=== PATIENT | female | born 1945 | race Caucasian/White ===

== ENCOUNTER → 2017-12-16 | Day surgery (SDC) | payer MEDICARE, OTHER ==
[2017-12-13 12:13] LABS: BASOPHILS # (AUTO) 0.1 (0.0-0.1); BASOPHILS % 0.7 % (0.0-1.0); EOSINOPHILS # (AUTO) 0.2 (0.0-0.4); EOSINOPHILS % 3.3 % (0.0-6.0); HEMATOCRIT 46.2 % (34.2-44.1); HEMOGLOBIN 15.2 g/dL (12.0-16.0); LYMPHOCYTES # (AUTO) 2.2 (1.0-3.2); LYMPHOCYTES % 29.3 % (18.0-39.1); MEAN CORPUSCULAR HEMOGLOBIN 30.6 pg (28-32); MEAN CORPUSCULAR HGB CONC 32.9 g/dL (31-35); MEAN CORPUSCULAR VOLUME 93.1 fL (81-99); MONOCYTES # (AUTO) 0.7 (0.2-0.8); MONOCYTES % 9.6 % (4.4-11.3); NEUTROPHILS # (AUTO) 4.2 (2.1-6.9); NEUTROPHILS % 56.8 % (38.7-80.0); PLATELET COUNT 249 x10e3/uL (140-360); RED BLOOD COUNT 4.96 x10e6/uL (3.6-5.1); RED CELL DISTRIBUTION WIDTH 13.5 % (11.7-14.4)
[~2017-12-16] MED LIST: AMLODIPINE BESYL5 MG PO; ASPIR 8181 MG PO; AUGMENTIN 875-1 EACH PO; AZO CRANBERRY1 EAC1 PO; CLARITIN10 M1 PO; CRESTOR10 MG PO; FENTANYL CITRATE/PF 100MCG/2 ML INJ ONE; FISH OIL 1,0001 EAC2 PO; FLONASE16 GM; GABAPENTIN300 MG PO; GLIPIZIDE5 MG PO; HYOSCYAMINE SULFATE 0.5 MG/ML AMP ONE; INVOKANA PO; LIDOCAINE HCL 2% LOCAL INJ 5 ML SDV VIAL INJ ONE; LISINOPRIL-HCT1 EAC1 PO; METFORMIN HCL1000 M1 PO; METOPROLOL TART50 MG PO; MULTI-VITAMIN1 EACH PO; POTASSIUM CHLOR8 ME1 PO; PROPOFOL IV EMULSION 10 MG/ML 50 ML VIAL ONE; REQUIP1 MG PO; SIMVASTATIN10 MG PO; VITAMIN B COMP1 EAC4 PO
--- NOTE | 2017-12-16 14:06 | Operative Report ---
DATE OF PROCEDURE: December 16, 2017 REFERRING PHYSICIAN: Dr. Sally Lemus PROCEDURES PERFORMED 1. Esophagogastroduodenoscopy with biopsies. 2. Colonoscopy with polypectomy. INDICATIONS FOR EGD: Heartburn and indigestion. INDICATIONS FOR COLONOSCOPY: Colorectal cancer screening and personal history of colon polyps. MEDICATION: Patient was done under MAC. Please see anesthesiologist's note. PROCEDURE: With the patient in the left lateral decubitus position, the flexible fiberoptic Olympus gastroscope was introduced into the esophagus under direct visualization without any difficulty. There was some patchy erythema noted in the distal esophagus. The scope was then advanced with ease into the stomach. Mucosa overlying the antrum and the body revealed some patchy erythema and moderate edema, and biopsies were obtained and sent to stain for H. pylori. There was also some minute ulcers in the antrum and biopsies were obtained. The pylorus was of normal contour and shape. It was intubated with ease. The scope was advanced all the way to the 2nd portion of the duodenum. The scope was then withdrawn slowly. Mucosa overlying the proximal 2nd portion and the duodenal bulb appeared to be within normal limits. The scope was then withdrawn back into the stomach and retroflexed. The mucosa overlying the fundus and the cardia appeared to be within normal limits. The scope was then straightened out. The stomach was decompressed. The scope was subsequently withdrawn. Patient tolerated the procedure well. IMPRESSION 1. Distal esophagitis. 2. Gastritis. 3. Gastric ulcers, minute, antrum. Biopsies obtained and sent to stain for Helicobacter pylori. PLAN: Follow up histology. Initiate Protonix 40 mg 1 p.o. q.a.m. and a.c. Patient was then turned around. After adequate lubrication of the anal canal, a flexible fiberoptic Olympus colonoscope was inserted into the rectum with ease and advanced all the way to the cecum. Prep overall was suboptimal. The scope was then withdrawn slowly. Whatever was visualized, the mucosa overlying the cecum, ascending colon, transverse colon, and descending colon grossly appeared to be within normal limits. One polyp was snared from the sigmoid colon. Diverticular disease was noted in the sigmoid colon. The rectum grossly appeared to be within normal limits. The scope was then retroflexed into the distal rectum and small internal hemorrhoids were noted, none of which was actively bleeding. The scope was then straightened out. The rectosigmoid area, as well as the distal rectal area were decompressed. The scope was subsequently withdrawn. Patient tolerated the procedure well. IMPRESSION 1. Suboptimal prep. 2. Sigmoid colon polyp, snared. 3. Diverticulosis. 4. Internal hemorrhoids, none actively bleeding. PLAN: Follow up histology. Initiate high-fiber and low-fat diet. Initiate high-fiber supplement. Patient will need a followup colonoscopy in 3 years. Job#: [id number] RI cc:SALLY LEMUS MD
== END | disposition home or self-care (01) ==
LOC: OR 10:10
PROVIDERS: ATTEND Internal Medicine Gastroenterology
DX: Z12.11 Encounter for screening for malignant neoplasm of colon (principal); D12.5 Benign neoplasm of sigmoid colon; K29.70 Gastritis, unspecified, without bleeding; K25.9 Gastric ulcer, unspecified as acute or chronic, without hemorrhage or perforation; K20.9 Esophagitis, unspecified; K57.30 Diverticulosis of large intestine without perforation or abscess without bleeding; K64.8 Other hemorrhoids; I10 Essential (primary) hypertension; E11.9 Type 2 diabetes mellitus without complications; R00.1 Bradycardia, unspecified; Z88.0 Allergy status to penicillin; Z88.1 Allergy status to other antibiotic agents; Z01.810 Encounter for preprocedural cardiovascular examination; Z01.812 Encounter for preprocedural laboratory examination; Z79.82 Long term (current) use of aspirin; Z68.29 Body mass index [BMI] 29.0-29.9, adult
CPT/HCPCS: 36415 ×2; 43239; 45385; 82948; 85025; 88305; 88312; 93005; J1980; J2001

== ENCOUNTER → 2018-04-24 | Outpatient (CLI) | payer MEDICARE, OTHER ==
[~2018-04-24] MED LIST changes: -FENTANYL CITRATE/PF 100MCG/2 ML INJ ONE; -HYOSCYAMINE SULFATE 0.5 MG/ML AMP ONE; -LIDOCAINE HCL 2% LOCAL INJ 5 ML SDV VIAL INJ ONE; -PROPOFOL IV EMULSION 10 MG/ML 50 ML VIAL ONE
--- NOTE | 2018-04-24 10:13 | Diagnostic Imaging Report ---
PROCEDURE: X-RAY CHEST, TWO VIEWS COMPARISON: None. INDICATIONS: PREOPERATIVE CHEST XRAY FOR KNEE SURGERY FINDINGS: LUNGS: No consolidations or edema. PLEURA: No effusions or pneumothorax. HEART \T\ MEDIASTINUM: The heart is within normal size-limits. Tortuosity and calcification within the aorta. BONES \T\ SOFT TISSUES: No acute findings. Degenerative changes of the spine. CONCLUSION: No acute thoracic abnormality. Osmany Ren D.O. Dictated by: Osmany Ren D.O. on 04/24/2018 at 10:20 Electronically approved by: Osmany Ren D.O. on 04/24/2018 at 10:20
== END ==
LOC: RAD 09:24
DX: Z01.818 Encounter for other preprocedural examination (principal)
CPT/HCPCS: 71046

== ENCOUNTER → 2020-02-29 | Day surgery (SDC) | payer MEDICARE, OTHER ==
[2020-02-25 14:48] LABS: BASOPHILS # (AUTO) 0.1 (0.0-0.1); BASOPHILS % 0.9 % (0.0-1.0); EOSINOPHILS # (AUTO) 0.3 (0.0-0.4); EOSINOPHILS % 2.4 % (0.0-6.0); HEMATOCRIT 51.8 % (34.2-44.1); HEMOGLOBIN 16.4 g/dL (12.0-16.0); LYMPHOCYTES # (AUTO) 2.9 (1.0-3.2); MEAN CORPUSCULAR HEMOGLOBIN 28.1 pg (28-32); MEAN CORPUSCULAR HGB CONC 31.7 g/dL (31-35); MEAN CORPUSCULAR VOLUME 88.9 fL (81-99); MONOCYTES # (AUTO) 1.2 (0.2-0.8); MONOCYTES % 11.1 % (4.4-11.3); NEUTROPHILS # (AUTO) 6.3 (2.1-6.9); NEUTROPHILS % 58.2 % (38.7-80.0); PLATELET COUNT 324 x10e3/uL (140-360); RED BLOOD COUNT 5.83 x10e6/uL (3.6-5.1); RED CELL DISTRIBUTION WIDTH 14.3 % (11.7-14.4)
[~2020-02-29] MED LIST changes: +FENTANYL CITRATE/PF 100MCG/2 ML INJ ONE; +LIDOCAINE HCL 2% LOCAL INJ 5 ML SDV VIAL INJ ONE; +MIDAZOLAM HCL 2 MG/2 ML VIAL ONE; +PROPOFOL IV EMULSION 10 MG/ML 20 ML VIAL ONE; +VITAMIN C500 M6 PO; +VITAMIN D3125 MCG PO
[2020-02-29 08:30] VITALS: BP 117/75
--- NOTE | 2020-02-29 08:41 | Operative Report ---
DATE OF PROCEDURE: 02/29/2020 SURGEON: Ted Nolan MD PROCEDURE: EGD with biopsies. INDICATIONS FOR EGD: Upper abdominal pain, history of GIST tumor. MEDICATIONS: The patient was done under MAC, please see anesthesiologist's note. PROCEDURE IN DETAIL: With the patient in the left lateral decubitus position, a flexible fiberoptic Olympus gastroscope was introduced into the esophagus under direct visualization without any difficulty. There was some patchy erythema noted in distal esophagus. The scope was then advanced with ease into the stomach. Mucosa overlying the antrum and the body revealed some diffuse erythema and low-grade to moderate edema, and biopsies were obtained and sent to stain for H. pylori. An approximately 1 cm prepyloric lesion was noted and that was biopsied. The scope was then advanced with ease all the way into the second portion of the duodenum and the duodenal anastomosis appeared intact without evidence of recurrence. The scope was then withdrawn back into the duodenal bulb. An approximately 1.2 cm submucosal lesion was noted in the distal bulb and biopsies were obtained. The scope was then withdrawn back into the stomach and retroflexed, and mucosa overlying the fundus and the cardia appeared to be within normal limits. The scope was then straightened out, it was subsequently withdrawn, and the patient tolerated the procedure well. IMPRESSION: 1. Distal esophagitis, mild. 2. Gastritis, biopsied, biopsies sent to stain for Helicobacter pylori. 3. Approximately 1 cm prepyloric lesion, biopsied. 4. Approximately 1.2 cm submucosal lesion bulb, biopsied. 5. Duodenal anastomosis intact. No evidence of recurrence. PLAN: Follow up histology. Initiate Protonix 40 mg one p.o. q.a.m. before meals. The patient will need an EGD in 2 to 3 months to re-evaluate for evaluation if biopsies were negative. Ted Nolan MD [facility] /[id number] cc: Austin Nolan MD
== END | disposition home or self-care (01) ==
LOC: OR 05:51
PROVIDERS: ATTEND Internal Medicine Gastroenterology
DX: K29.50 Unspecified chronic gastritis without bleeding (principal); Z86.010 Personal history of colon polyps; K31.7 Polyp of stomach and duodenum; K29.80 Duodenitis without bleeding; K20.9 Esophagitis, unspecified; Z98.0 Intestinal bypass and anastomosis status; K31.89 Other diseases of stomach and duodenum; E11.9 Type 2 diabetes mellitus without complications; I10 Essential (primary) hypertension; E78.00 Pure hypercholesterolemia, unspecified; D21.4 Benign neoplasm of connective and other soft tissue of abdomen; M19.90 Unspecified osteoarthritis, unspecified site; F17.210 Nicotine dependence, cigarettes, uncomplicated; Z88.1 Allergy status to other antibiotic agents; Z88.0 Allergy status to penicillin; Z01.810 Encounter for preprocedural cardiovascular examination; Z01.812 Encounter for preprocedural laboratory examination; Z11.59 Encounter for screening for other viral diseases; Z79.82 Long term (current) use of aspirin; Z79.84 Long term (current) use of oral hypoglycemic drugs; Z79.4 Long term (current) use of insulin; Z68.26 Body mass index [BMI] 26.0-26.9, adult; Z86.018 Personal history of other benign neoplasm
CPT/HCPCS: 36415 ×2; 43239; 82948; 85025; 87635; 88305; 88312; 93005; J2001; J2250; J2704; J3010

== ENCOUNTER → 2020-03-02 | Outpatient (CLI) | payer MEDICARE, OTHER ==
[~2020-03-02] MED LIST changes: -FENTANYL CITRATE/PF 100MCG/2 ML INJ ONE; +IOPAMIDOL 370 MG/ML 200 ML INFUS..BTL INJ ONE; -LIDOCAINE HCL 2% LOCAL INJ 5 ML SDV VIAL INJ ONE; -MIDAZOLAM HCL 2 MG/2 ML VIAL ONE; -PROPOFOL IV EMULSION 10 MG/ML 20 ML VIAL ONE; +SODIUM CHLORIDE 0.9% 50ML 50 ML ONE
[2020-03-02 15:44] LABS: BLOOD UREA NITROGEN 16 mg/dL (7-26); BUN/CREATININE RATIO 22 (6-25); CREATININE, SERUM 0.74 mg/dL (0.57-1.11); EST GLOMERULAR FILTRATION RATE > 60 ML/MIN (60-)
--- NOTE | 2020-03-02 16:53 | Diagnostic Imaging Report ---
EXAM: CT Abdomen and Pelvis WITH intravenous contrast INDICATION: Upper abdominal pain COMPARISON: None. TECHNIQUE: Abdomen and pelvis were scanned utilizing a multidetector helical scanner from the lung base to the pubic symphysis after administration of IV contrast. Coronal and sagittal reformations were obtained. Routine protocol was performed. Scan was performed during portal venous phase. IV CONTRAST: 100mL of Isovue 370 ORAL CONTRAST: Water RADIATION DOSE: Total DLP: 753 mGy*cm Dose modulation, iterative reconstruction, and/or weight based adjustment of the mA/kV was utilized to reduce the radiation dose to as low as reasonably achievable. FINDINGS: LOWER THORAX: Normal. HEPATOBILIARY: No focal liver lesion. Focal fat adjacent to the falciform ligament. SPLEEN: No splenomegaly. PANCREAS: No focal masses or ductal dilatation. ADRENALS: No adrenal nodules. KIDNEYS/URETERS: No hydronephrosis, stones, or solid mass lesions. 2 cm right upper pole renal cyst. PELVIC ORGANS/BLADDER: Calcified uterine fibroids. PERITONEUM / RETROPERITONEUM: No free air or fluid. LYMPH NODES: No lymphadenopathy. VESSELS: Moderate atherosclerotic calcifications of the nonaneurysmal abdominal aorta and major branches. GI TRACT: Prominent diverticulosis. No CT evidence of diverticulitis. No abnormal bowel thickening. No bowel obstruction. Duodenal diverticulum. BONES AND SOFT TISSUES: No acute fracture or dislocation. IMPRESSION: No acute findings in the abdomen to explain patient's upper abdominal pain. Signed by: Tee Gilbert MD on 03/02/2020 4:50 PM
== END ==
LOC: CT 14:45
PROVIDERS: ATTEND Internal Medicine Gastroenterology
DX: R10.10 Upper abdominal pain, unspecified (principal)
CPT/HCPCS: 36415; 74177; 82565; 84520; Q9967

== ENCOUNTER → 2022-06-22 | Outpatient (CLI) | payer MEDICARE, OTHER ==
[~2022-06-22] MED LIST changes: +IOPAMIDOL 370 MG/ML 100 ML INFUS..BTL INJ ONE; -IOPAMIDOL 370 MG/ML 200 ML INFUS..BTL INJ ONE; -SODIUM CHLORIDE 0.9% 50ML 50 ML ONE
== END ==
LOC: CT 07:39
DX: R10.9 Unspecified abdominal pain (principal); Z98.890 Other specified postprocedural states
CPT/HCPCS: 74177; Q9967

== ENCOUNTER 2022-11-10 06:23 | Inpatient (IN) | payer MEDICARE, OTHER ==
[~2022-11-10] VITALS: Ht 175.3 cm; Wt 103.4 kg
[~2022-11-10 06:23] MED LIST changes: -IOPAMIDOL 370 MG/ML 100 ML INFUS..BTL INJ ONE
[2022-11-10 06:57] LABS: BASOPHILS # (AUTO) 0.1 (0.0-0.1); BASOPHILS % 0.6 % (0.0-1.0); EOSINOPHILS # (AUTO) 0.2 (0.0-0.4); EOSINOPHILS % 1.3 % (0.0-6.0); HEMATOCRIT 52.9 % (34.2-44.1); HEMOGLOBIN 17.1 g/dL (12.0-16.0); LYMPHOCYTES % 16.1 % (18.0-39.1); MEAN CORPUSCULAR HEMOGLOBIN 29.3 pg (28-32); MEAN CORPUSCULAR HGB CONC 32.3 g/dL (31-35); MEAN CORPUSCULAR VOLUME 90.6 fL (81-99); MONOCYTES # (AUTO) 1.2 (0.2-0.8); MONOCYTES % 9.9 % (4.4-11.3); NEUTROPHILS % 71.8 % (38.7-80.0); PLATELET COUNT 296 x10e3/uL (140-360); RED BLOOD COUNT 5.84 x10e6/uL (3.6-5.1); RED CELL DISTRIBUTION WIDTH 16.4 % (11.7-14.4)
[2022-11-10 07:02] LABS: INR 0.91; PROTHROMBIN TIME 12.8 seconds (11.9-14.5)
[2022-11-10 07:11] LABS: ALBUMIN 3.8 g/dL (3.5-5.0); ANION GAP 14.1 mmol/L (8-16); CALCIUM 9.7 mg/dL (8.4-10.2); CREATININE, SERUM 0.92 mg/dL (0.57-1.11); POTASSIUM 4.1 mmol/L (3.5-5.1)
[2022-11-10] MEDS ORDERED: DICYCLOMINE HCL 20 MG/2 ML VIAL IM ONE (07:30)
[2022-11-10] MEDS ORDERED: FENTANYL CITRATE/PF 100MCG/2 ML INJ IV PRN (07:30)
[2022-11-10] MEDS ORDERED: IOPAMIDOL 370 MG/ML 100 ML INFUS..BTL INJ ONE (07:33)
[2022-11-10] MEDS ORDERED: SODIUM CHLORIDE 0.9% 100 ML ONE (07:33)
[2022-11-10] MEDS ORDERED: LACTATED RINGER'S 1,000 ML INJ ONE (09:30)
[2022-11-10] MEDS ORDERED: ONDANSETRON HCL INJ 2MG/ML 2ML 2 MG/ML VIAL IV PRN (09:45)
[2022-11-10] MEDS: SODIUM CHLORIDE 0.9% 1000ML 1,000 ML IV SCH ×2 (10:02→12:03)
[2022-11-10] MEDS: Morphine 4mg INJECTION 4 MG/ML INJ IV PRN ×3 (10:47→20:58)
[2022-11-10] MEDS ORDERED: BUPROPION HCL100 MG PO (10:56)
[2022-11-10] MEDS ORDERED: POTASSIUM CHLO10 ME1 PO (10:56)
[2022-11-10] MEDS ORDERED: VESICARE5 MG PO (10:56)
[2022-11-10] MEDS ORDERED: PRAVASTATIN SOD10 MG PO (10:56)
[2022-11-10] MEDS ORDERED: ZINC PO (10:59)
[2022-11-10] MEDS ORDERED: ZYRTEC10 MG PO (11:00)
[2022-11-10] MEDS ORDERED: METRONIDAZOLE 750MG/NS 150ML 150 ML IV SCH (11:00)
[2022-11-10] MEDS ORDERED: VITAMIN D330 ML PO (11:01)
[2022-11-10] MEDS ORDERED: B COMPLEX1 EACH PO (11:03)
[2022-11-10 11:30] VITALS: BP 117/62
[2022-11-10 11:53] VITALS: BP 117/62
[2022-11-10] MEDS ORDERED: FENTANYL CITRATE/PF 100MCG/2 ML INJ ONE (12:53)
[2022-11-10] MEDS: METRONIDAZOLE 750MG/NS 150ML 150 ML IV SCH ×2 (12:55→18:04)
[2022-11-10] MEDS ORDERED: PROPOFOL IV EMULSION 10 MG/ML 20 ML VIAL ONE (13:58)
[2022-11-10 16:16] VITALS: BP 107/59
[2022-11-10] MEDS: GABAPENTIN 300 MG CAP PO SCH (16:58)
[2022-11-10] MEDS ORDERED: METOPROLOL TARTRATE 50 MG TAB PO SCH (17:00)
[2022-11-10] MEDS ORDERED: CIPROFLOXACIN 400 MG/D5W 200ML 200 ML IV SCH (17:00)
[2022-11-10] MEDS: CIPROFLOXACIN 400 MG/D5W 200ML 200 ML IV SCH (21:04)
[2022-11-10 22:36] VITALS: BP 94/49
[2022-11-10 22:38] VITALS: BP 94/49
[2022-11-11] VITALS (7 sets, daily range): BP systolic 90–124; BP diastolic 47–81
[2022-11-11] MEDS: SODIUM CHLORIDE 0.9% 1000ML 1,000 ML IV SCH ×3 (00:21→16:11)
[2022-11-11] MEDS: METRONIDAZOLE 750MG/NS 150ML 150 ML IV SCH ×3 (04:32→18:02)
[2022-11-11] MEDS: Morphine 4mg INJECTION 4 MG/ML INJ IV PRN ×3 (05:03→17:40)
[2022-11-11 05:37] LABS: BASOPHILS # (AUTO) 0.1 (0.0-0.1); BASOPHILS % 0.5 % (0.0-1.0); EOSINOPHILS # (AUTO) 0.2 (0.0-0.4); EOSINOPHILS % 1.9 % (0.0-6.0); HEMATOCRIT 46.4 % (34.2-44.1); HEMOGLOBIN 14.6 g/dL (12.0-16.0); LYMPHOCYTES # (AUTO) 1.7 (1.0-3.2); LYMPHOCYTES % 15.9 % (18.0-39.1); MEAN CORPUSCULAR HGB CONC 31.5 g/dL (31-35); MEAN CORPUSCULAR VOLUME 92.2 fL (81-99); MONOCYTES # (AUTO) 1.1 (0.2-0.8); MONOCYTES % 10.2 % (4.4-11.3); NEUTROPHILS # (AUTO) 7.8 (2.1-6.9); NEUTROPHILS % 71.3 % (38.7-80.0); PLATELET COUNT 229 x10e3/uL (140-360); RED BLOOD COUNT 5.03 x10e6/uL (3.6-5.1); RED CELL DISTRIBUTION WIDTH 15.8 % (11.7-14.4)
[2022-11-11 06:02] LABS: ALBUMIN 2.9 g/dL (3.5-5.0); ANION GAP 12.7 mmol/L (8-16); CALCIUM 8.8 mg/dL (8.4-10.2); CREATININE, SERUM 0.74 mg/dL (0.57-1.11); POTASSIUM 3.7 mmol/L (3.5-5.1)
[2022-11-11] MEDS ORDERED: HYDROCHLOROTHIAZIDE 25 MG TAB PO SCH (09:00)
[2022-11-11] MEDS ORDERED: LISINOPRIL 20 MG TAB PO SCH (09:00)
[2022-11-11] MEDS: SOLIFENACIN SUCCINATE 5 MG TAB PO SCH (09:50)
[2022-11-11] MEDS: MULTIVITAMINS/MINERALS TAB PO SCH (09:50)
[2022-11-11] MEDS: BUPROPION HCL 100 MG TAB PO SCH (09:50)
[2022-11-11] MEDS: GABAPENTIN 300 MG CAP PO SCH ×2 (09:50→16:11)
[2022-11-11] MEDS: CIPROFLOXACIN 400 MG/D5W 200ML 200 ML IV SCH ×2 (09:53→20:23)
[2022-11-11] MEDS ORDERED: IOPAMIDOL 370 MG/ML 100 ML INFUS..BTL INJ ONE (11:15)
[2022-11-12] VITALS (8 sets, daily range): BP systolic 143–157; BP diastolic 66–85
[2022-11-12] MEDS: SODIUM CHLORIDE 0.9% 1000ML 1,000 ML IV SCH ×3 (00:09→17:26)
[2022-11-12] MEDS: Morphine 4mg INJECTION 4 MG/ML INJ IV PRN ×4 (00:09→09:24)
[2022-11-12] MEDS: METRONIDAZOLE 750MG/NS 150ML 150 ML IV SCH ×3 (03:40→17:26)
[2022-11-12 04:54] LABS: BASOPHILS # (AUTO) 0.1 (0.0-0.1); BASOPHILS % 0.6 % (0.0-1.0); EOSINOPHILS # (AUTO) 0.3 (0.0-0.4); EOSINOPHILS % 2.9 % (0.0-6.0); HEMATOCRIT 46.3 % (34.2-44.1); HEMOGLOBIN 14.5 g/dL (12.0-16.0); LYMPHOCYTES # (AUTO) 1.5 (1.0-3.2); LYMPHOCYTES % 16.9 % (18.0-39.1); MEAN CORPUSCULAR HEMOGLOBIN 28.8 pg (28-32); MEAN CORPUSCULAR HGB CONC 31.3 g/dL (31-35); MONOCYTES # (AUTO) 0.9 (0.2-0.8); MONOCYTES % 10.6 % (4.4-11.3); NEUTROPHILS % 68.8 % (38.7-80.0); PLATELET COUNT 214 x10e3/uL (140-360); RED BLOOD COUNT 5.03 x10e6/uL (3.6-5.1); RED CELL DISTRIBUTION WIDTH 15.3 % (11.7-14.4)
[2022-11-12 05:16] LABS: ANION GAP 14.6 mmol/L (8-16); CALCIUM 8.3 mg/dL (8.4-10.2); CREATININE, SERUM 0.71 mg/dL (0.57-1.11); POTASSIUM 3.6 mmol/L (3.5-5.1)
[2022-11-12] MEDS: MULTIVITAMINS/MINERALS TAB PO SCH (09:26)
[2022-11-12] MEDS: BUPROPION HCL 100 MG TAB PO SCH (09:26)
[2022-11-12] MEDS: GABAPENTIN 300 MG CAP PO SCH ×2 (09:26→17:25)
[2022-11-12] MEDS: CIPROFLOXACIN 400 MG/D5W 200ML 200 ML IV SCH ×2 (09:26→21:22)
[2022-11-12] MEDS: SOLIFENACIN SUCCINATE 5 MG TAB PO SCH (09:26)
[2022-11-12] MEDS: HYDROCODONE/APAP 10MG-325MG TAB PO PRN ×3 (11:06→23:25)
[2022-11-12] MEDS: METOPROLOL TARTRATE 50 MG TAB PO SCH (18:43)
[2022-11-13] VITALS (7 sets, daily range): BP systolic 127–151; BP diastolic 64–79
[2022-11-13] MEDS: SODIUM CHLORIDE 0.9% 1000ML 1,000 ML IV SCH ×3 (00:32→18:03)
[2022-11-13] MEDS: METRONIDAZOLE 750MG/NS 150ML 150 ML IV SCH ×3 (03:17→18:02)
[2022-11-13 04:53] LABS: BASOPHILS # (AUTO) 0.1 (0.0-0.1); BASOPHILS % 0.8 % (0.0-1.0); EOSINOPHILS # (AUTO) 0.2 (0.0-0.4); EOSINOPHILS % 3.7 % (0.0-6.0); HEMOGLOBIN 13.9 g/dL (12.0-16.0); LYMPHOCYTES # (AUTO) 1.3 (1.0-3.2); LYMPHOCYTES % 20.1 % (18.0-39.1); MEAN CORPUSCULAR HGB CONC 31.6 g/dL (31-35); MEAN CORPUSCULAR VOLUME 91.7 fL (81-99); MONOCYTES # (AUTO) 0.7 (0.2-0.8); MONOCYTES % 10.7 % (4.4-11.3); NEUTROPHILS # (AUTO) 4.2 (2.1-6.9); NEUTROPHILS % 64.4 % (38.7-80.0); PLATELET COUNT 230 x10e3/uL (140-360); RED CELL DISTRIBUTION WIDTH 14.7 % (11.7-14.4)
[2022-11-13 05:15] LABS: ALANINE AMINOTRANSFERASE 10 IU/L (0-55); ALBUMIN 2.8 g/dL (3.5-5.0); ALBUMIN/GLOBULIN RATIO 0.9 (0.8-2.0); ALKALINE PHOSPHATASE 66 IU/L (40-150); ANION GAP 11.6 mmol/L (8-16); BLOOD UREA NITROGEN < 5 mg/dL (7-26); CALCIUM 9.2 mg/dL (8.4-10.2); CARBON DIOXIDE 24 mmol/L (22-29); CHLORIDE 108 mmol/L (98-107); CREATININE, SERUM 0.66 mg/dL (0.57-1.11); GLUCOSE 117 mg/dL (74-118); MAGNESIUM 1.4 MG/DL (1.3-2.1); POTASSIUM 3.6 mmol/L (3.5-5.1); SODIUM 140 mmol/L (136-145)
[2022-11-13 05:16] LABS: BUN/CREATININE RATIO 8 (6-25)
[2022-11-13] MEDS: HYDROCODONE/APAP 10MG-325MG TAB PO PRN ×2 (05:32→12:35)
[2022-11-13] MEDS: CIPROFLOXACIN 400 MG/D5W 200ML 200 ML IV SCH ×2 (09:17→20:03)
[2022-11-13] MEDS: GABAPENTIN 300 MG CAP PO SCH ×2 (09:17→16:12)
[2022-11-13] MEDS: METOPROLOL TARTRATE 50 MG TAB PO SCH ×2 (09:19→16:12)
[2022-11-13] MEDS: BUPROPION HCL 100 MG TAB PO SCH (09:19)
[2022-11-13] MEDS: MULTIVITAMINS/MINERALS TAB PO SCH (09:19)
[2022-11-13] MEDS: SOLIFENACIN SUCCINATE 5 MG TAB PO SCH (09:19)
[2022-11-13] MEDS ORDERED: BISACODYL 5 MG TAB EC PO ONE ×5 (18:50→20:15)
[2022-11-13] MEDS ORDERED: PEG (High)/E-LYTE SOLN 4,000 ML BTL PO ONE (20:30)
[2022-11-13 21:15] LABS: WBC,FECAL (FECAL LACTOFERRIN) POSITIVE (NEGATIVE)
[2022-11-13] MEDS ORDERED: METOCLOPRAMIDE HCL 10 MG/2ML VIAL IV ONE (22:15)
[2022-11-14] VITALS (8 sets, daily range): BP systolic 141–173; BP diastolic 77–93
[2022-11-14] MEDS: METRONIDAZOLE 750MG/NS 150ML 150 ML IV SCH ×3 (03:00→19:22)
[2022-11-14 05:32] LABS: BASOPHILS # (AUTO) 0.1 (0.0-0.1); BASOPHILS % 0.7 % (0.0-1.0); EOSINOPHILS # (AUTO) 0.2 (0.0-0.4); EOSINOPHILS % 2.8 % (0.0-6.0); HEMATOCRIT 44.7 % (34.2-44.1); HEMOGLOBIN 14.3 g/dL (12.0-16.0); LYMPHOCYTES # (AUTO) 1.3 (1.0-3.2); MEAN CORPUSCULAR HEMOGLOBIN 29.2 pg (28-32); MEAN CORPUSCULAR VOLUME 91.4 fL (81-99); MONOCYTES # (AUTO) 0.8 (0.2-0.8); MONOCYTES % 10.9 % (4.4-11.3); NEUTROPHILS # (AUTO) 4.7 (2.1-6.9); NEUTROPHILS % 66.3 % (38.7-80.0); PLATELET COUNT 260 x10e3/uL (140-360); RED BLOOD COUNT 4.89 x10e6/uL (3.6-5.1); RED CELL DISTRIBUTION WIDTH 14.6 % (11.7-14.4)
[2022-11-14 06:12] LABS: ALANINE AMINOTRANSFERASE 10 IU/L (0-55); ALBUMIN 2.7 g/dL (3.5-5.0); ALBUMIN/GLOBULIN RATIO 0.9 (0.8-2.0); ALKALINE PHOSPHATASE 69 IU/L (40-150); ANION GAP 11.2 mmol/L (8-16); BLOOD UREA NITROGEN < 5 mg/dL (7-26); CALCIUM 8.6 mg/dL (8.4-10.2); CARBON DIOXIDE 24 mmol/L (22-29); CHLORIDE 109 mmol/L (98-107); CREATININE, SERUM 0.64 mg/dL (0.57-1.11); GLUCOSE 127 mg/dL (74-118); MAGNESIUM 1.3 MG/DL (1.3-2.1); POTASSIUM 3.2 mmol/L (3.5-5.1); SODIUM 141 mmol/L (136-145)
[2022-11-14 06:18] LABS: BUN/CREATININE RATIO 8 (6-25)
[2022-11-14] MEDS: METOCLOPRAMIDE HCL 10 MG/2ML VIAL IV SCH ×4 (06:38→18:28)
[2022-11-14] MEDS: SODIUM CHLORIDE 0.9% 1000ML 1,000 ML IV SCH ×3 (06:38→18:22)
[2022-11-14] MEDS: SOLIFENACIN SUCCINATE 5 MG TAB PO SCH (09:00)
[2022-11-14] MEDS: GABAPENTIN 300 MG CAP PO SCH ×2 (09:00→18:22)
[2022-11-14] MEDS: MULTIVITAMINS/MINERALS TAB PO SCH (09:00)
[2022-11-14] MEDS: BUPROPION HCL 100 MG TAB PO SCH (09:00)
[2022-11-14] MEDS: METOPROLOL TARTRATE 50 MG TAB PO SCH ×2 (09:40→18:24)
[2022-11-14] MEDS: CIPROFLOXACIN 400 MG/D5W 200ML 200 ML IV SCH ×2 (09:46→20:45)
[2022-11-14] MEDS: LISINOPRIL 20 MG TAB PO SCH (10:04)
[2022-11-14] MEDS ORDERED: POTASSIUM CHLORIDE 20 MEQ TAB CR PO ONE (10:15)
[2022-11-14] MEDS: ACETAMINOPHEN 1000 MG/100 ML IV PRN (13:24)
[2022-11-14] MEDS ORDERED: HYDRALAZINE HCL 20 MG/ML VIAL IV PRN (18:30)
[2022-11-15 00:06] VITALS: BP 148/70
[2022-11-15] MEDS: METOCLOPRAMIDE HCL 10 MG/2ML VIAL IV SCH ×2 (00:09→05:24)
[2022-11-15] MEDS: SODIUM CHLORIDE 0.9% 1000ML 1,000 ML IV SCH (00:11)
[2022-11-15] MEDS: METRONIDAZOLE 750MG/NS 150ML 150 ML IV SCH (02:39)
[2022-11-15 04:00] VITALS: BP 161/75
[2022-11-15 04:57] LABS: BASOPHILS # (AUTO) 0.1 (0.0-0.1); BASOPHILS % 1.1 % (0.0-1.0); EOSINOPHILS # (AUTO) 0.3 (0.0-0.4); HEMATOCRIT 43.6 % (34.2-44.1); LYMPHOCYTES # (AUTO) 1.3 (1.0-3.2); LYMPHOCYTES % 19.2 % (18.0-39.1); MEAN CORPUSCULAR HGB CONC 32.1 g/dL (31-35); MEAN CORPUSCULAR VOLUME 90.3 fL (81-99); MONOCYTES # (AUTO) 0.8 (0.2-0.8); MONOCYTES % 12.3 % (4.4-11.3); NEUTROPHILS # (AUTO) 4.1 (2.1-6.9); NEUTROPHILS % 63.1 % (38.7-80.0); PLATELET COUNT 252 x10e3/uL (140-360); RED BLOOD COUNT 4.83 x10e6/uL (3.6-5.1); RED CELL DISTRIBUTION WIDTH 14.9 % (11.7-14.4)
[2022-11-15 05:14] LABS: ALANINE AMINOTRANSFERASE 13 IU/L (0-55); ALBUMIN/GLOBULIN RATIO 0.9 (0.8-2.0); ALKALINE PHOSPHATASE 65 IU/L (40-150); ANION GAP 11.2 mmol/L (8-16); BLOOD UREA NITROGEN < 5 mg/dL (7-26); CALCIUM 8.8 mg/dL (8.4-10.2); CARBON DIOXIDE 22 mmol/L (22-29); CHLORIDE 110 mmol/L (98-107); CREATININE, SERUM 0.65 mg/dL (0.57-1.11); GLUCOSE 116 mg/dL (74-118); MAGNESIUM 1.4 MG/DL (1.3-2.1); POTASSIUM 3.2 mmol/L (3.5-5.1); SODIUM 140 mmol/L (136-145)
[2022-11-15 05:19] LABS: BUN/CREATININE RATIO 8 (6-25)
[2022-11-15] MEDS: ACETAMINOPHEN 1000 MG/100 ML IV PRN (05:24)
[2022-11-15 08:45] VITALS: BP 161/75
[2022-11-15] MEDS: GABAPENTIN 300 MG CAP PO SCH (08:48)
[2022-11-15] MEDS: BUPROPION HCL 100 MG TAB PO SCH (08:48)
[2022-11-15] MEDS: MULTIVITAMINS/MINERALS TAB PO SCH (08:48)
[2022-11-15] MEDS: LISINOPRIL 20 MG TAB PO SCH (08:49)
[2022-11-15] MEDS: SOLIFENACIN SUCCINATE 5 MG TAB PO SCH (08:49)
[2022-11-15] MEDS: METOPROLOL TARTRATE 50 MG TAB PO SCH (08:49)
[2022-11-15] MEDS ORDERED: HYDROCODON-ACE1 EAC9 PO (08:55)
[2022-11-15] MEDS ORDERED: POTASSIUM CHLORIDE 20 MEQ TAB CR PO ONE ×2 (09:00→10:00)
[2022-11-15] MEDS ORDERED: MAGNESIUM OXIDE 400 MG TAB PO ONE (09:00)
[2022-11-15] MEDS: CIPROFLOXACIN 400 MG/D5W 200ML 200 ML IV SCH (09:00)
[2022-11-15] MEDS ORDERED: PROPOFOL IV EMULSION 10 MG/ML 20 ML VIAL ONE (19:27)
[2022-11-16] MEDS ORDERED: MAGNESIUM OXIDE 400 MG TAB PO SCH (09:00)
== END 2022-11-15 11:33 | disposition home or self-care (01) | DRG 386 ==
LOC: ER 06:30 → ERHOLD 09:36 → MED/SURG 11:39 → MED/SURG3 11-13 23:39
PROVIDERS: ADMIT Internal Medicine; ATTEND Internal Medicine
PROC: 0W9G3ZZ Drainage of Peritoneal Cavity, Percutaneous Approach (ICD-10-PCS; principal; 2022-11-11)
PROC: 0DBN8ZX Excision of Sigmoid Colon, Via Natural or Artificial Opening Endoscopic, Diagnostic (ICD-10-PCS; 2022-11-14)
PROC: 0DBM8ZX Excision of Descending Colon, Via Natural or Artificial Opening Endoscopic, Diagnostic (ICD-10-PCS; 2022-11-14 16:40)
DX: K51.90 Ulcerative colitis, unspecified, without complications (principal); C34.2 Malignant neoplasm of middle lobe, bronchus or lung; D68.59 Other primary thrombophilia; J44.9 Chronic obstructive pulmonary disease, unspecified; E78.5 Hyperlipidemia, unspecified; D75.1 Secondary polycythemia; K57.90 Diverticulosis of intestine, part unspecified, without perforation or abscess without bleeding; I11.9 Hypertensive heart disease without heart failure; E66.01 Morbid (severe) obesity due to excess calories; Z68.33 Body mass index [BMI] 33.0-33.9, adult; F17.210 Nicotine dependence, cigarettes, uncomplicated; E11.42 Type 2 diabetes mellitus with diabetic polyneuropathy; K64.8 Other hemorrhoids; Z88.0 Allergy status to penicillin; Z85.038 Personal history of other malignant neoplasm of large intestine; Z79.82 Long term (current) use of aspirin; Z20.822 Contact with and (suspected) exposure to COVID-19
CPT/HCPCS: 0223U; 36415; 45378; 45380; 71046; 71260; 74019; 74174; 74470; 80053; 82948; 83605; 83630; 83735; 83993; 85025; 85610; 86850; 86900; 87040; 87045; 87177; 87324; 87328; 87449; 88305; 94799; 96361; 99252; 99284; J2270; J2405; J2765; J7030; J7050; Q9967

== ENCOUNTER → 2022-11-19 | Outpatient (CLI) | payer MEDICARE, OTHER ==
[~2022-11-19] MED LIST changes: +B COMPLEX1 EACH PO; +BUPROPION HCL100 MG PO; +FENTANYL CITRATE/PF 100MCG/2 ML INJ ONE; +HYDROCODON-ACE1 EAC9 PO; +LIDOCAINE 1% 10 ML MULTIDOSE VIAL IJ ONE; +MIDAZOLAM HCL 2 MG/2 ML VIAL ONE; +POTASSIUM CHLO10 ME1 PO; +PRAVASTATIN SOD10 MG PO; +SODIUM CHLORIDE 0.9% 250ML 250 ML ONE; +VESICARE5 MG PO; +VITAMIN D330 ML PO; +ZINC PO; +ZYRTEC10 MG PO
== END ==
LOC: CT 09:41
PROVIDERS: ATTEND Internal Medicine
DX: R91.8 Other nonspecific abnormal finding of lung field (principal)
CPT/HCPCS: 10160; 32408; 71045; 77012; 88305; 88342; J2250; J3010; J7050; 88304; 99152; 99153

== ENCOUNTER → 2022-12-13 | Outpatient (CLI) | payer MEDICARE, OTHER ==
[~2022-12-13] MED LIST changes: -FENTANYL CITRATE/PF 100MCG/2 ML INJ ONE; +GADOBENATE DIMEGLUMINE 1 ML IV ONE; -LIDOCAINE 1% 10 ML MULTIDOSE VIAL IJ ONE; -MIDAZOLAM HCL 2 MG/2 ML VIAL ONE; -SODIUM CHLORIDE 0.9% 250ML 250 ML ONE
== END ==
LOC: MRI 12:06
PROVIDERS: ATTEND Internal Medicine Medical Oncology
DX: C34.2 Malignant neoplasm of middle lobe, bronchus or lung (principal)
CPT/HCPCS: 70553; A9577

== ENCOUNTER → 2023-02-06 | Day surgery (SDC) | payer MEDICARE, OTHER ==
[2023-02-05 11:14] LABS: BASOPHILS # (AUTO) 0.1 (0.0-0.1); BASOPHILS % 1.2 % (0.0-1.0); EOSINOPHILS # (AUTO) 0.4 (0.0-0.4); EOSINOPHILS % 5.5 % (0.0-6.0); HEMATOCRIT 47.8 % (34.2-44.1); HEMOGLOBIN 14.8 g/dL (12.0-16.0); LYMPHOCYTES # (AUTO) 1.7 (1.0-3.2); LYMPHOCYTES % 24.2 % (18.0-39.1); MEAN CORPUSCULAR HEMOGLOBIN 29.4 pg (28-32); MEAN CORPUSCULAR VOLUME 94.8 fL (81-99); MONOCYTES # (AUTO) 0.7 (0.2-0.8); MONOCYTES % 10.2 % (4.4-11.3); NEUTROPHILS # (AUTO) 4.1 (2.1-6.9); NEUTROPHILS % 58.3 % (38.7-80.0); PLATELET COUNT 295 x10e3/uL (140-360); RED BLOOD COUNT 5.04 x10e6/uL (3.6-5.1); RED CELL DISTRIBUTION WIDTH 13.7 % (11.7-14.4)
[2023-02-05 11:33] LABS: ALBUMIN 3.9 g/dL (3.5-5.0); ALBUMIN/GLOBULIN RATIO 1.1 (0.8-2.0); ANION GAP 12.7 mmol/L (8-16); CALCIUM 10.1 mg/dL (8.4-10.2); CREATININE, SERUM 0.84 mg/dL (0.57-1.11); POTASSIUM 4.7 mmol/L (3.5-5.1)
[~2023-02-06] MED LIST changes: +ACETAMINOPHEN 1000 MG/100 ML 100 ML IV ONE; +ACETAMINOPHEN 1000 MG/100 ML IV ONE; +AMIODARONE HCL200 MG PO; +BUPIVACAINE HCL 0.25% 10ML MPF VIAL INJ ONE; +COLLAGEN PEPTIDE; +DEXAMETHASONE SOD PHOS INJ 4 MG/ML SDV ONE; +DOXEPIN HCL25 MG PO; +EPHEDRINE SULFATE INJ 50 MG/ML VIAL ONE; +EPINEPHRINE HCL 1:1000 1ML 1 MG/ML AMP ONE; -GADOBENATE DIMEGLUMINE 1 ML IV ONE; +HEPARIN SOD (PORCINE) 5,000 UNIT/ML VIAL ONE; +LACTATED RINGER'S 1,000 ML ONE; +LEVOFLOXACIN 500MG/D5W 100ML 100 ML IV ONE; +LIDOCAINE HCL 1% LOCAL INJ 20 ML VIAL ONE; +LIDOCAINE HCL 2% LOCAL INJ 5 ML SDV VIAL INJ ONE; +MAGNESIUM GLYC120 MG PO; +ONDANSETRON HCL INJ 2MG/ML 2ML 2 MG/ML VIAL ONE; +POVIDONE IODINE 0.05% 0.05 % ML PO ONE; +PROPOFOL IV EMULSION 10 MG/ML 20 ML VIAL ONE; +PROTONIX20 MG PO; +SEVOFLURANE INHAL SOLN 250 ML PEN BTL ONE; +SODIUM CHLORIDE 0.9% 500ML 500 ML ONE
[2023-02-06 11:30] VITALS: BP 123/67; PULSE 63; RESP 18; O2SAT 95
== END | disposition home or self-care (01) ==
LOC: OR 06:39
PROVIDERS: ATTEND Surgery
DX: C34.91 Malignant neoplasm of unspecified part of right bronchus or lung (principal); Z90.2 Acquired absence of lung [part of]; I10 Essential (primary) hypertension; I49.9 Cardiac arrhythmia, unspecified; E78.5 Hyperlipidemia, unspecified; K21.9 Gastro-esophageal reflux disease without esophagitis; E11.9 Type 2 diabetes mellitus without complications; F41.9 Anxiety disorder, unspecified; F32.A Depression, unspecified; F17.200 Nicotine dependence, unspecified, uncomplicated; Z88.1 Allergy status to other antibiotic agents; Z88.0 Allergy status to penicillin; Z01.810 Encounter for preprocedural cardiovascular examination; Z01.812 Encounter for preprocedural laboratory examination; Z01.818 Encounter for other preprocedural examination; Z79.82 Long term (current) use of aspirin; Z79.899 Other long term (current) drug therapy
CPT/HCPCS: 36415 ×2; 36561; 71046; 80053; 82948; 85025; 93005; C1751; J0131; J0171; J1100; J1644; J1956; J2001; J2405; J2704; J7040; J7121; 76000